=== PATIENT | female | born 1970 | race Caucasian/White ===

== ENCOUNTER → 2016-06-09 | Outpatient (CLI) | payer OTHER ==
[~2016-06-09] MED LIST: ACHD5005 PO; BNZ40T PO; DCS100C PO; FLUO20CA42 PO; HYDR12.56 PO; IBP600T1 PO
--- NOTE | 2016-06-09 20:03 | Diagnostic Imaging Report ---
Bilateral diagnostic mammogram INDICATION: Followup exam This study was compared to the prior exams of 11/30/15, 04/30/15, 12/26/13 and 11/27/12. At this time, there are no current complaints. The current study was also evaluated with a Computer Aided Detection (CAD) system. The screening mammogram performed on 04/30/15 noted an asymmetric density in the upper-outer aspect of the right breast on the MLO view. The subsequent diagnostic mammogram and ultrasound exam performed on 05/08/15 suggested that this is probably secondary to summation artifact. This finding appeared stable on the followup mammogram of the right breast performed on 11/30/15. On this exam, the area in question is again evident and does not appear to have changed adversely. I do suspect that it is a benign process. However, I would recommend that a six-month followup exam be performed for continued evaluation. The overall appearance of the breast is otherwise no different. There are scattered fibroglandular densities in each breast which could obscure a lesion. There is no primary or secondary sign of malignancy noted. IMPRESSION: 1. The asymmetric density in the upper-outer aspect of the right breast seen previously appears stable. Most likely this finding is due to fibroglandular tissue. Recommendations as above. 2. There is no evidence of malignancy. ACR BI-RADS Category 3: Probably benign findings. Result letter will be mailed to the patient. Note: At least 10% of breast cancer is not imaged by mammography. Dictated by: Dictated on workstation # [id number]
== END ==
LOC: RAD 08:12
PROVIDERS: ATTEND Internal Medicine
DX: R92.0 Mammographic microcalcification found on diagnostic imaging of breast (principal)
CPT/HCPCS: 77066

== ENCOUNTER → 2017-01-04 | Outpatient (CLI) | payer OTHER ==
--- NOTE | 2017-01-04 19:32 | Diagnostic Imaging Report ---
Right breast diagnostic mammogram with tomography. The current study was also evaluated with a Computer Aided Detection (CAD) system. INDICATION: Followup asymmetry along the upper aspect of the right breast. COMPARISON: 06/09/16. FINDINGS: Scattered fibroglandular densities are seen. There are scattered benign-appearing calcifications. Stable asymmetry in the upper aspect of the right breast is seen with tomographic views demonstrate no definitive underlying nodule. This is stable from 05/08/2015 exam in favor of benign etiology. IMPRESSION: Asymmetry in the upper aspect of the right breast from 05/08/15 in favor of benign etiology. Another followup when the patient is due for her bilateral mammogram in May 2017 is recommended. ACR BI-RADS Category 3: Probably benign findings. Result letter will be mailed to the patient. Note: At least 10% of breast cancer is not imaged by mammography. Dictated by: Dictated on workstation # [id number]
== END ==
LOC: RAD 13:18
PROVIDERS: ATTEND Internal Medicine
DX: N64.89 Other specified disorders of breast (principal)

== ENCOUNTER 2017-01-19 13:13 | Outpatient (CLI) | payer OTHER | END 2017-01-19 13:51 | disposition home or self-care (01) | LOC: SLEEP 13:13 | PROVIDERS: ATTEND Nurse Practitioner Family | DX: G47.33 Obstructive sleep apnea (adult) (pediatric) (principal) ==

== ENCOUNTER → 2017-10-03 | Outpatient (CLI) | payer OTHER ==
--- NOTE | 2017-10-03 12:54 | Diagnostic Imaging Report ---
INDICATION: Routine screening. COMPARISON: 06/09/2016, 11/30/2015, and 04/30/2015. TECHNIQUE: 2D and 3D bilateral screening mammography was performed with CAD. FINDINGS: Both breasts are primarily involutional. An asymmetric density in the upper right breast appears stable. There are benign calcifications bilaterally. No mass or malignant appearing microcalcifications are seen. The axillae are unremarkable. IMPRESSION: No mammographic features suspicious for malignancy are identified. ACR BI-RADS Category 2: Benign findings. Result letter will be mailed to the patient. Note: At least 10% of breast cancer is not imaged by mammography. Dictated by: Dictated on workstation # [id number]
== END ==
LOC: RAD 07:59
PROVIDERS: ATTEND Internal Medicine
DX: Z12.31 Encounter for screening mammogram for malignant neoplasm of breast (principal)
CPT/HCPCS: 77067

== ENCOUNTER → 2018-11-26 | Outpatient (CLI) | payer OTHER ==
--- NOTE | 2018-11-26 12:35 | Diagnostic Imaging Report ---
INDICATION: Routine screening. COMPARISON: 10/03/2017 and 06/09/2016. TECHNIQUE: 2D and 3D bilateral screening mammography was performed with CAD. FINDINGS: Scattered fibroglandular densities are identified bilaterally. A nodular density in the upper right breast is stable. There are benign calcifications bilaterally. No new mass or malignant appearing microcalcifications are seen. The axillae are unremarkable. IMPRESSION: No mammographic features suspicious for malignancy are identified. ACR BI-RADS Category 2: Benign findings. Result letter will be mailed to the patient. Note: At least 10% of breast cancer is not imaged by mammography. Dictated by: Dictated on workstation # [id number]
== END ==
LOC: RAD 11:26
PROVIDERS: ATTEND Internal Medicine
DX: Z12.31 Encounter for screening mammogram for malignant neoplasm of breast (principal)
CPT/HCPCS: 77067

== ENCOUNTER → 2020-02-10 | Outpatient (CLI) | payer OTHER ==
--- NOTE | 2020-02-11 10:03 | Diagnostic Imaging Report ---
INDICATION: Routine screening. COMPARISON: 11/26/2018 and 10/03/2017. TECHNIQUE: 2D and 3D bilateral screening mammography was performed with CAD. FINDINGS: Scattered fibroglandular densities are identified bilaterally. There are benign calcifications in both breasts. No mass or malignant appearing microcalcifications are seen. The axillae are unremarkable. IMPRESSION: No mammographic features suspicious for malignancy are identified. ACR BI-RADS Category 2: Benign findings. Result letter will be mailed to the patient. Note: At least 10% of breast cancer is not imaged by mammography. Dictated by: Dictated on workstation # [id number]
== END ==
LOC: RAD 14:19
PROVIDERS: ATTEND Internal Medicine
DX: Z12.31 Encounter for screening mammogram for malignant neoplasm of breast (principal)
CPT/HCPCS: 77063; 77067

== ENCOUNTER → 2021-02-12 | Outpatient (CLI) | payer OTHER ==
--- NOTE | 2021-02-15 11:00 | Diagnostic Imaging Report ---
INDICATION: Routine screening. Comparison is made with prior mammogram from 02/10/2020 and 11/26/2018. 2-D and 3-D bilateral screening mammography was performed with CAD. Scattered fibroglandular densities are identified bilaterally. There is a nodular density in a slightly medial left breast mid depth best seen on the CC view. No definite correlate is identified on the MLO view could be at the nipple line. Additional views recommended. Right breast unremarkable. There are benign calcifications. No malignant-appearing microcalcifications are seen. Axillae are unremarkable. IMPRESSION: BI-RADS Category 0 Left breast density. Additional views are recommended for further evaluation. ACR BI-RADS Category 0: Incomplete. (Needs additional imaging evaluation). Result letter will be mailed to the patient. Note: At least 10% of breast cancer is not imaged by mammography. Dictated by: Dictated on workstation # [id number]
== END ==
LOC: RAD 12:45
PROVIDERS: ATTEND Internal Medicine
DX: Z12.31 Encounter for screening mammogram for malignant neoplasm of breast (principal)
CPT/HCPCS: 77063; 77067

== ENCOUNTER → 2021-02-24 | Outpatient (CLI) | payer OTHER ==
--- NOTE | 2021-02-24 09:41 | Diagnostic Imaging Report ---
INDICATION: Left breast density. Patient presents for additional views. COMPARISON: Correlation is made with the screening study from 02/12/2021. TECHNIQUE: Unilateral left 2D and 3D diagnostic mammography was performed. This includes spot compression CC, rolled CC, and conventional 90 degree lateral views. The current study was evaluated with a Computer Aided Detection (CAD) system. FINDINGS: Additional views show persistence of a slightly nodular density in the medial left breast approximately 7 cm from the nipple. Further evaluation of this area with ultrasound is recommended. IMPRESSION: Persistent nodular density in the medial left breast, 7 cm from the nipple. Further evaluation with ultrasound is recommended and will be performed today. ACR BI-RADS Category 0: Incomplete. (Needs additional imaging evaluation). Result letter will be mailed to the patient. Note: At least 10% of breast cancer is not imaged by mammography. Dictated by: Dictated on workstation # [id number]
--- NOTE | 2021-02-24 10:48 | Diagnostic Imaging Report ---
Indication: Left breast density. Correlation is made with diagnostic mammogram earlier the same day as well as the screening mammogram from 02/12/2021. Sonographic interrogation of the inner left breast was performed from the 7-11 o'clock location. No sonographic abnormality is identified. No solid or cystic mass is detected. IMPRESSION: BI-RADS Category 3 No sonographic abnormalities identified to account for the mammographic density. Density may reflect superimposition of fibroglandular elements. Even so, follow-up left mammogram in 6 months is recommended to show continued stability. ACR BI-RADS Category 3: Probably benign findings. Dictated by: Dictated on workstation # [id number]
== END ==
LOC: RAD 09:15
PROVIDERS: ATTEND Internal Medicine
DX: R92.2 Inconclusive mammogram (principal)
CPT/HCPCS: 76642; 77065; G0279

== ENCOUNTER → 2022-02-25 | Outpatient (CLI) | payer OTHER ==
--- NOTE | 2022-02-28 09:45 | Diagnostic Imaging Report ---
INDICATION: Routine screening. COMPARISON: 02/12/2021 and 02/10/2020. TECHNIQUE: 2D and 3D bilateral screening mammography was performed with CAD. FINDINGS: Scattered fibroglandular densities are identified bilaterally. There are two nodular densities in the retroareolar left breast just lateral to the nipple line. A second nodular density just medial to the nipple line at mid depth is also noted and appears stable. No spiculated mass is identified. The right breast is unremarkable. There are occasional benign calcifications. No malignant-appearing microcalcifications are seen. The axillae are unremarkable. IMPRESSION: Nodular densities in the left breast, as described. There are two nodular densities in the outer retroareolar left breast and a 3rd nodular density just medial to the nipple line in the central left breast. Further evaluation with ultrasound of these areas is recommended. ACR BI-RADS Category 0: Incomplete. (Needs additional imaging evaluation). Result letter will be mailed to the patient. Note: At least 10% of breast cancer is not imaged by mammography. Dictated by: Dictated on workstation # [id number]
== END ==
LOC: RAD 15:25
PROVIDERS: ATTEND Internal Medicine
DX: Z12.31 Encounter for screening mammogram for malignant neoplasm of breast (principal); N63.20 Unspecified lump in the left breast, unspecified quadrant
CPT/HCPCS: 77063; 77067

== ENCOUNTER → 2022-03-14 | Outpatient (CLI) | payer OTHER ==
--- NOTE | 2022-03-17 08:55 | Diagnostic Imaging Report ---
INDICATION: Left breast nodules. Correlation is made with screening mammogram from 02/25/2022. There are 2 cysts with some internal echoes in the retroareolar left breast, corresponding to the mammographic densities. These measure 5 to 6 mm in size. No internal vascularity is seen. Medial left breast was also evaluated from 6-12 o'clock. No sonographic abnormality is seen. No solid or cystic masses detected in the medial left breast. IMPRESSION: BI-RADS Category 3 1. Complex cyst retroareolar left breast corresponding to mammographic densities. 2. No sonographic abnormality in the medial left breast is identified to account for the density noted mammographically. Continued close follow-up is recommended with repeat left mammogram and left breast ultrasound in 6 months to show continued stability. ACR BI-RADS Category 3: Probably benign findings. Dictated by: Dictated on workstation # [id number]
== END ==
LOC: RAD 13:31
PROVIDERS: ATTEND Internal Medicine
DX: N60.02 Solitary cyst of left breast (principal)

== ENCOUNTER → 2023-03-06 | Outpatient (CLI) | payer OTHER ==
--- NOTE | 2023-03-07 14:41 | Diagnostic Imaging Report ---
INDICATION: Routine screening. COMPARISON: 02/25/2022 and 02/12/2021. TECHNIQUE: 2D and 3D bilateral screening mammography was performed with CAD. FINDINGS: Scattered fibroglandular densities are identified bilaterally. Both breasts demonstrate scattered benign-appearing calcifications. The nodular density in the retroareolar left breast is stable. The nodular density closest to the nipple on the prior study is not as well-seen on today's study. In addition, the nodule in the slight medial left breast at mid depth is stable to perhaps slightly smaller on today's study. No new mass is detected. No malignant-appearing microcalcifications are identified. The axillae are unremarkable. IMPRESSION: No mammographic features suspicious for malignancy are identified. ACR BI-RADS Category 2: Benign findings. Result letter will be mailed to the patient. Note: At least 10% of breast cancer is not imaged by mammography. Dictated by: Dictated on workstation # [id number]
== END ==
LOC: RAD 07:59
PROVIDERS: ATTEND Internal Medicine
DX: Z12.31 Encounter for screening mammogram for malignant neoplasm of breast (principal)
CPT/HCPCS: 77063; 77067